=== PATIENT | male | born 1950 | race Caucasian/White ===

== ENCOUNTER 2017-09-20 22:00 | Inpatient (IN) | payer OTHER, MEDICAID ==
[~2017-09-20] VITALS: Ht 177.8 cm; Wt 86.2 kg
[2017-09-21 01:39] LABS: BASOPHILS # (AUTO) 0.09 x10^3/uL (0-0.1); BASOPHILS % (AUTO) 1 % (0-1); EOSINOPHILS # (AUTO) 0.14 x10^3/uL (0-0.4); EOSINOPHILS % (AUTO) 2 % (1-7); LYMPHOCYTES # (AUTO) 1.76 x10^3/uL (1-3.4); LYMPHOCYTES % (AUTO) 25 % (22-44); MD NO; MEAN CORPUSCULAR HEMOGLOBIN 27.8 pg (27.5-34.5); MEAN CORPUSCULAR HGB CONC 33.6 g/dL (33.2-36.2); MEAN CORPUSCULAR VOLUME 82.7 fL (81-97); MEAN PLATELET VOLUME 8.2 fL (7.4-10.4); MONOCYTES # (AUTO) 0.57 x10^3/uL (0.2-0.8); MONOCYTES % (AUTO) 8 % (2-9); NEUTROPHILS # (AUTO) 4.49 x10^3/uL (1.8-6.8); NEUTROPHILS % (AUTO) 64 % (42-75); PLATELET COUNT 138 x10^3/uL (130-400); RED BLOOD COUNT 4.34 x10^6/uL (4.38-5.82)
[2017-09-21 01:48] LABS: ALBUMIN 3.6 g/dL (3.4-5.0); ANION GAP 5 mmol/L (5-15); CALCIUM 8.7 mg/dL (8.5-10.1); CHLORIDE 112 mmol/L (98-107)
[2017-09-21] MEDS ORDERED: SODIUM CHLORIDE 0.9% 1,000ML IVBOLUS ONE (02:30)
[2017-09-21] MEDS ORDERED: SODIUM CHLORIDE FLUSH 10ML SYR IVF ONE (02:30)
[2017-09-21] MEDS ORDERED: SERT50TA PO (03:11)
[2017-09-21] MEDS ORDERED: LORA-446 PO (03:11)
[2017-09-21 03:33] LABS: SALICYLATE LEVEL 7.1 mg/dL (2.8-20.0)
[2017-09-21 03:35] LABS: ACETAMINOPHEN < 2 mcg/mL (10-30)
[2017-09-21] MEDS ORDERED: hydrALAzine 20 MG/ML, 1ML IVPush PRN (04:00)
[2017-09-21] MEDS ORDERED: PROMETHAZINE 25 MG/ML, 1ML IM PRN (04:00)
[2017-09-21] MEDS ORDERED: ONDANSETRON ODT 4 MG PO PRN (04:00)
[2017-09-21] MEDS ORDERED: LORazepam 0.5MG TABLET PO PRN (04:00)
[2017-09-21] MEDS ORDERED: BISACODYL 10 MG SUPP PR PRN (04:00)
[2017-09-21] MEDS ORDERED: ONDANSETRON 2MG/ML, 2ML IVPush PRN (04:00)
[2017-09-21] MEDS ORDERED: ACETAMINOPHEN 325 MG TABLET PO PRN (04:00)
[2017-09-21] MEDS ORDERED: POLYETHYLENE GLYCOL 17 GM PACKET PO PRN (04:00)
[2017-09-21] MEDS: NICOTINE 7 MG/24 HR PATCH.TD24 TD SCH ×2 (04:00→09:07)
[2017-09-21] MEDS ORDERED: DOCUSATE 100 MG CAPSULE PO PRN (04:00)
[2017-09-21 04:01] VITALS: BP 130/76
[2017-09-21 04:11] LABS: FREE T4 (FREE THYROXINE) 0.72 ng/dL (0.76-1.46); THYROID STIMULATING HORMONE 2.08 mIU/L (0.358-3.740)
[2017-09-21] MEDS: HEPARIN 5,000 UNITS/ML, 1ML SQ SCH ×3 (04:28→20:09)
[2017-09-21] MEDS: SODIUM CHLORIDE 0.9% 1,000 ML IV SCH ×3 (04:29→20:09)
[2017-09-21 04:35] LABS: HEMOGLOBIN A1C 5.2 % (4.2-6.3)
[2017-09-21 04:47] LABS: CULTURE INDICATED? YES; MICROSCOPIC INDICATED
[2017-09-21 04:49] LABS: AMPHETAMINE SCREEN, URINE Negative (Negative); BARBITURATE SCREEN, URINE Negative (Negative); BENZODIAZEPINE SCREEN, URINE Positive (Negative); CANNABINOID SCREEN, URINE Negative (Negative); COCAINE SCREEN, URINE Negative (Negative); METHADONE SCREEN, URINE Negative (Negative); OPIATE SCREEN, URINE Negative (Negative)
[2017-09-21 07:09] VITALS: BP 119/71
[2017-09-21 12:04] VITALS: BP 107/63
[2017-09-21] MEDS ORDERED: CEFTRIAXONE PMX 1GM/50ML 50 ML IV SCH (13:00)
[2017-09-21 20:50] VITALS: BP 147/85
[2017-09-22 03:34] VITALS: BP 158/97
[2017-09-22] MEDS: SODIUM CHLORIDE 0.9% 1,000 ML IV SCH (04:20)
[2017-09-22] MEDS: HEPARIN 5,000 UNITS/ML, 1ML SQ SCH ×2 (04:20→12:48)
[2017-09-22 05:18] LABS: BASOPHILS # (AUTO) 0.02 x10^3/uL (0-0.1); BASOPHILS % (AUTO) 0 % (0-1); EOSINOPHILS # (AUTO) 0.07 x10^3/uL (0-0.4); EOSINOPHILS % (AUTO) 1 % (1-7); LYMPHOCYTES # (AUTO) 0.76 x10^3/uL (1-3.4); LYMPHOCYTES % (AUTO) 10 % (22-44); MD NO; MEAN CORPUSCULAR HEMOGLOBIN 27.6 pg (27.5-34.5); MEAN CORPUSCULAR HGB CONC 33.2 g/dL (33.2-36.2); MEAN CORPUSCULAR VOLUME 83.2 fL (81-97); MEAN PLATELET VOLUME 8.4 fL (7.4-10.4); MONOCYTES # (AUTO) 0.35 x10^3/uL (0.2-0.8); MONOCYTES % (AUTO) 4 % (2-9); NEUTROPHILS # (AUTO) 6.66 x10^3/uL (1.8-6.8); NEUTROPHILS % (AUTO) 85 % (42-75); PLATELET COUNT 152 x10^3/uL (130-400); RED BLOOD COUNT 4.73 x10^6/uL (4.38-5.82); RED CELL DISTRIBUTION WIDTH 16.1 % (9.4-14.8)
[2017-09-22 05:32] LABS: CHLORIDE 114 mmol/L (98-107)
[2017-09-22 05:38] LABS: ALANINE AMINOTRANSFERASE 12 U/L (12-78); ALBUMIN 3.4 g/dL (3.4-5.0); ALKALINE PHOSPHATASE 69 U/L (45-117); ANION GAP 7 mmol/L (5-15); BILIRUBIN,TOTAL 0.4 mg/dL (0.2-1.0); CALCIUM 8.5 mg/dL (8.5-10.1); CHOL/HDL RATIO 4.9; CHOLESTEROL, TOTAL 158 mg/dL (140-239); CREATININE 1.76 mg/dL (0.7-1.3); HDL CHOL % 20 % (26-37); HDL CHOLESTEROL (DIRECT) 32 mg/dL (40-60); LDL CHOLESTEROL,CALCULATED 76 mg/dL (54-169); LDL/HDL RATIO 2.4 (0.5-3.0); TRIGLYCERIDES 249 mg/dL (50-200); VLDL CHOLESTEROL 50 mg/dL (0-25)
[2017-09-22 07:55] VITALS: BP 148/70
[2017-09-22] MEDS ORDERED: SERT50TA5 PO (10:18)
[2017-09-22] MEDS ORDERED: LORA2TAB PO (10:18)
[2017-09-22] MEDS ORDERED: DIAZ5TAB4 PO (10:18)
[2017-09-22] MEDS ORDERED: TRAM50TA2 PO (10:18)
[2017-09-22] MEDS ORDERED: SODI650T PO (10:18)
[2017-09-22] MEDS ORDERED: OXYC5TAB3 PO (10:18)
[2017-09-22] MEDS ORDERED: QUET400T4 PO (10:18)
[2017-09-22] MEDS ORDERED: CHLO50TA6 PO (10:18)
[2017-09-22 12:45] VITALS: BP 138/91
[2017-09-22] MEDS ORDERED: SODIUM CHLORIDE 0.9% 1,000 ML IV SCH (13:00)
== END 2017-09-22 15:00 | disposition home or self-care (01) | DRG 91 ==
LOC: ED 09-21 02:18 → EDIP 09-21 02:45 → 4EST 09-21 03:53
PROVIDERS: ADMIT Internal Medicine; ATTEND Internal Medicine
DX: G92 Toxic encephalopathy (principal); N17.0 Acute kidney failure with tubular necrosis; N39.0 Urinary tract infection, site not specified; K56.600 Partial intestinal obstruction, unspecified as to cause; D64.9 Anemia, unspecified; F17.210 Nicotine dependence, cigarettes, uncomplicated; F32.9 Major depressive disorder, single episode, unspecified; F41.9 Anxiety disorder, unspecified; G89.29 Other chronic pain; T42.4X5A Adverse effect of benzodiazepines, initial encounter; Y92.89 Other specified places as the place of occurrence of the external cause
CPT/HCPCS: 36415; 70450; 74018; 76770; 80048; 80053; 80061; 80307; 80329; 81001; 82040; 82140; 83036; 83735; 84439; 84443; 85025; 87086; 87106; 93005; 99285; J0696; J1644; G0480; J7030

== ENCOUNTER 2018-01-27 18:54 | Emergency (ER) | payer OTHER, MEDICAID ==
[~2018-01-27] VITALS: Ht 175.3 cm; Wt 94.0 kg
[~2018-01-27 18:54] MED LIST: CHLO50TA6 PO; DIAZ5TAB4 PO; LORA-446 PO; LORA2TAB PO; OXYC5TAB3 PO; QUET400T4 PO; SERT50TA PO; SERT50TA5 PO; SODI650T PO; TRAM50TA2 PO
[2018-01-27 19:45] LABS: BASOPHILS # (AUTO) 0.01 x10^3/uL (0-0.1); BASOPHILS % (AUTO) 0 % (0-1); EOSINOPHILS # (AUTO) 0.05 x10^3/uL (0-0.4); EOSINOPHILS % (AUTO) 1 % (1-7); LYMPHOCYTES % (AUTO) 7 % (22-44); MD NO; MEAN CORPUSCULAR HEMOGLOBIN 30.9 pg (27.5-34.5); MEAN CORPUSCULAR HGB CONC 34.4 g/dL (33.2-36.2); MEAN CORPUSCULAR VOLUME 89.9 fL (81-97); MEAN PLATELET VOLUME 7.8 fL (7.4-10.4); MONOCYTES # (AUTO) 0.23 x10^3/uL (0.2-0.8); MONOCYTES % (AUTO) 2 % (2-9); NEUTROPHILS % (AUTO) 90 % (42-75); PLATELET COUNT 156 x10^3/uL (130-400); RED BLOOD COUNT 4.94 x10^6/uL (4.38-5.82); RED CELL DISTRIBUTION WIDTH 15.7 % (9.4-14.8)
[2018-01-27 19:57] LABS: ALANINE AMINOTRANSFERASE 21 U/L (12-78); ALBUMIN 3.9 g/dL (3.4-5.0); ANION GAP 7 mmol/L (5-15); CALCIUM 8.7 mg/dL (8.5-10.1); CHLORIDE 111 mmol/L (98-107)
[2018-01-27 19:59] LABS: ALKALINE PHOSPHATASE 64 U/L (45-117); BILIRUBIN,TOTAL 0.4 mg/dL (0.2-1.0); TOTAL PROTEIN 7.9 g/dL (6.4-8.2)
[2018-01-27 21:49] VITALS: BP 139/80
[2018-01-27 22:00] LABS: MICROSCOPIC AUTO
[2018-01-27 22:06] LABS: CULTURE INDICATED? YES
[2018-01-27] MEDS ORDERED: HYDROcodone/APAP 5/325 TABLET PO ONE (22:30)
[2018-01-27] MEDS ORDERED: HYDROcodone/APAP 5/325 TABLET ONE (22:40)
[2018-01-27] MEDS ORDERED: BACITRACIN ZINC OINT 500U/GM, 0.9 GM ONE (23:14)
[2018-01-27] MEDS ORDERED: SILVER SULF. CRM 1% , 25GM ONE (23:40)
[2018-01-28] MEDS ORDERED: SILVER SULF. CRM 1% , 25GM TP ONE
== END 2018-01-28 00:01 | disposition home or self-care (01) ==
LOC: ED 21:44
DX: R55 Syncope and collapse (principal); T24.301A Burn of third degree of unspecified site of right lower limb, except ankle and foot, initial encounter; T31.0 Burns involving less than 10% of body surface; X08.8XXA Exposure to other specified smoke, fire and flames, initial encounter; Y93.89 Activity, other specified; Y92.89 Other specified places as the place of occurrence of the external cause; Y99.8 Other external cause status
CPT/HCPCS: 16020; 36415; 70450; 71045; 80053; 80307; 81001; 82140; 85025; 87086; 93005; 99285

== ENCOUNTER 2019-07-04 10:28 | Emergency (ER) | payer MEDICARE, MEDICAID ==
[~2019-07-04] VITALS: Ht 172.7 cm; Wt 104.0 kg
[~2019-07-04 10:28] MED LIST changes: +SERT50TA28 PO; -SERT50TA5 PO
[2019-07-04] MEDS ORDERED: GABA300C10 PO (10:54)
[2019-07-04] MEDS ORDERED: KETOROLAC 30 MG/1 ML ONE (10:59)
[2019-07-04] MEDS ORDERED: DIAZEPAM 5 MG TABLET ONE (10:59)
[2019-07-04] MEDS ORDERED: DIAZEPAM 5 MG TABLET PO ONE (11:00)
[2019-07-04] MEDS ORDERED: KETOROLAC 30 MG/1 ML IM ONE (11:00)
--- NOTE | 2019-07-04 11:03 | NUR ---
PT AMBULATORY TO IMAGING.
[2019-07-04 11:52] VITALS: BP 113/70
== END 2019-07-04 12:00 | disposition home or self-care (01) ==
LOC: ED 11:26
DX: S29.012A Strain of muscle and tendon of back wall of thorax, initial encounter (principal); E66.9 Obesity, unspecified; Z68.34 Body mass index [BMI] 34.0-34.9, adult; Z87.891 Personal history of nicotine dependence; X58.XXXA Exposure to other specified factors, initial encounter; Y93.89 Activity, other specified; Y92.89 Other specified places as the place of occurrence of the external cause; Y99.8 Other external cause status
CPT/HCPCS: 72072; 96372; 99283; J1885

== ENCOUNTER 2019-11-03 19:54 | Emergency (ER) | payer MEDICARE, MEDICAID ==
[~2019-11-03] VITALS: Ht 175.3 cm; Wt 107.0 kg
[~2019-11-03 19:54] MED LIST changes: +GABA300C10 PO
--- NOTE | 2019-11-03 20:25 | NUR ---
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
[2019-11-03] MEDS ORDERED: CYCLOBENZAPRINE 10 MG TABLET ONE (21:00)
[2019-11-03] MEDS ORDERED: CYCLOBENZAPRINE 10 MG TABLET PO ONE (21:00)
[2019-11-03] MEDS ORDERED: KETOROLAC 30 MG/1 ML IM ONE (21:00)
[2019-11-03] MEDS ORDERED: KETOROLAC 30 MG/1 ML ONE (21:00)
--- NOTE | 2019-11-03 21:10 | NUR ---
PT MEDICATED PER ORDERS. TO XR VIA [facility].
--- NOTE | 2019-11-03 21:31 | NUR ---
PT RETURNS FROM XR.
--- NOTE | 2019-11-03 22:08 | NUR ---
PT STATES HE FEELS MUCH BETTER AFTER MEDS. ABLE TO AMBULATE. D/C INSTRUCTIONS, MEDS & F/U APPT RV'WD WITH PT, HE VERBALIZES UNDERSTANDING. RX GIVEN X2. PT'S FRIEND JONATHAN TO COME PICK HIM UP. ASSISTED PT OUT OF ED VIA WC.
== END 2019-11-03 22:11 | disposition home or self-care (01) ==
LOC: ED 20:28
DX: S39.012A Strain of muscle, fascia and tendon of lower back, initial encounter (principal); F17.200 Nicotine dependence, unspecified, uncomplicated; X58.XXXA Exposure to other specified factors, initial encounter; Y93.89 Activity, other specified; Y92.89 Other specified places as the place of occurrence of the external cause; Y99.8 Other external cause status
CPT/HCPCS: 72100; 96372; 99283; J1885

== ENCOUNTER 2020-06-23 18:46 | Inpatient (IN) | payer MEDICARE, MEDICAID ==
[~2020-06-23] VITALS: Ht 175.3 cm; Wt 92.8 kg
[~2020-06-23 18:46] MED LIST changes: +AZIT250T89 PO; +BENZ1TAB61 PO; +CEFD300C37 PO; +CLON0.1T2 PO; +GABA600T7 PO; -OXYC5TAB3 PO; +OXYC5TAB98 PO; +TOPI100T8 PO
--- NOTE | 2020-06-23 18:57 | NUR ---
PT BIB EMS FOR SOB AND SWOLLEN/ITVHY EYES. PT RECENTLY DX WITH PNEUMONIA AND UTI. PT HAS BEEN TAKING AZITHROMYCIN AND CEFEDINIR. PT ALSO C/O MID STERNAL CP 6/10, NON RADITATING. PT GIVEN 50 MG BENADRYL IV AND 1 ALBUTEROL TREATMENT. 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
--- NOTE | 2020-06-23 19:04 | NUR ---
PT NOTICED CP AND SWOLLEN EYES STARTED 3 DAYS AGO.
[2020-06-23] MEDS ORDERED: SODIUM CHLORIDE FLUSH 10ML SYR IVF ONE (19:30)
[2020-06-23 19:42] LABS: BASOPHILS % (AUTO) 1 % (0-1); EOSINOPHILS % (AUTO) 2 % (1-7); LYMPHOCYTES % (AUTO) 26 % (22-44); MEAN CORPUSCULAR HGB CONC 35.1 g/dL (33.2-36.2); MEAN PLATELET VOLUME 7.7 fL (7.4-10.4); MONOCYTES % (AUTO) 9 % (2-9); NEUTROPHILS % (AUTO) 63 % (42-75); PLATELET COUNT 215 x10^3/uL (130-400); RED CELL DISTRIBUTION WIDTH 14.2 % (9.4-14.8)
--- NOTE | 2020-06-23 19:45 | NUR ---
PT AMBULATED TO RESTROOM WITHOUT DIFFICULTY.
[2020-06-23 19:54] LABS: ALBUMIN 3.9 g/dL (3.4-5.0); ANION GAP 10 mmol/L (5-15); CALCIUM 9.3 mg/dL (8.5-10.1); CHLORIDE 109 mmol/L (98-107); CREATININE 2.44 mg/dL (0.7-1.3)
[2020-06-23 19:56] LABS: TROPONIN I < 0.015 ng/mL (0.000-0.045)
--- NOTE | 2020-06-23 22:20 | NUR ---
PT BACK FROM IMAGING, REQUESTING A SPRITE. AWARE, OKS PT TO HAVE A SODA. PT VERBALIZES APPRECIATION FOR CARES AND CONCERN. PT IN BED WITH HEAD OF BED ELEVATED TO SEMI FOWLERS, SEARCH OPTIMIZATION ANALYST IN PLACE, CALL LIGHT IN HAND AND BED RAILS UP BILATERALLY. NO SIGNS OR SYMPTOMS OF ACUTE DSITRESS NOTED RESPIRATIONS EVEN AND UNLABORED
[2020-06-23] MEDS ORDERED: ENOXAPARIN 80 MG/0.8 ML SQ ONE (23:30)
[2020-06-23] MEDS ORDERED: ENOXAPARIN 80 MG/0.8 ML ONE (23:36)
--- NOTE | 2020-06-23 23:49 | NUR ---
PT MEDICATED ORDERED, AWARE AND AGREEABLE WITH PLAN OF CARE. NO SIGNS OR SYMPTOMS OF ACUTE DISTRESS NOTED RESPIRATIONS EVEN AND UNLABORED.
--- NOTE | 2020-06-23 23:51 | NUR ---
PT PLACED ON NC WITH O2 AT 2L/MIN FOR SPO2 OF 92% ON ROOM AIR.
--- NOTE | 2020-06-24 00:23 | NUR ---
REPORT CALLED TO FLOOR, PT TO HAVE BLE US THEN WILL TRANSPORT TO IN PATIENT.
[2020-06-24] MEDS ORDERED: ACETAMINOPHEN 325 MG TABLET PO PRN (00:30)
[2020-06-24] MEDS ORDERED: ONDANSETRON ODT 4 MG PO PRN (00:30)
[2020-06-24] MEDS ORDERED: BISACODYL 10 MG SUPP PR PRN (00:30)
[2020-06-24] MEDS ORDERED: POLYETHYLENE GLYCOL 17 GM PACKET PO PRN (00:30)
[2020-06-24 01:40] VITALS: BP 115/73
[2020-06-24 05:49] VITALS: BP 115/62
[2020-06-24 06:32] VITALS: BP 135/61
[2020-06-24] MEDS ORDERED: HEPARIN 5,000 UNITS/ML, 1ML IV ONE (09:00)
[2020-06-24 10:20] LABS: ANION GAP 6 mmol/L (5-15); CALCIUM 9.2 mg/dL (8.5-10.1); CHLORIDE 109 mmol/L (98-107); CREATININE 2.21 mg/dL (0.7-1.3)
[2020-06-24] MEDS: HEPARIN 25,000 UNITS/250ML PMX 250 ML IV PRN (11:42)
[2020-06-24] MEDS: SODIUM CHLORIDE FLUSH 10ML SYR IVF SCH ×2 (11:44→22:20)
[2020-06-24] MEDS: SENNA/DOCUSATE TABLET PO SCH (12:16)
[2020-06-24] MEDS: GABAPENTIN 100 MG CAPSULE PO SCH ×2 (12:16→22:19)
[2020-06-24] MEDS: BENZTROPINE 1 MG TABLET PO SCH ×2 (12:16→22:19)
[2020-06-24] MEDS: TOPIRAMATE 100 MG TABLET PO SCH ×2 (12:17→22:19)
[2020-06-24] MEDS: D5%-0.9% NACL+KCL 20MEQ 1,000 ML IV SCH (13:01)
[2020-06-24 15:00] VITALS: BP 134/80
[2020-06-24 18:41] VITALS: BP 129/76
[2020-06-24 20:09] LABS: MICROSCOPIC AUTO
[2020-06-24 20:19] LABS: AMPHETAMINE SCREEN, URINE Negative (Negative); BARBITURATE SCREEN, URINE Negative (Negative); BENZODIAZEPINE SCREEN, URINE Negative (Negative); CANNABINOID SCREEN, URINE Negative (Negative); COCAINE SCREEN, URINE Negative (Negative); METHADONE SCREEN, URINE Negative (Negative); OPIATE SCREEN, URINE Negative (Negative)
[2020-06-24] MEDS: QUETIAPINE 200 MG TABLET PO SCH (22:19)
[2020-06-25] MEDS: D5%-0.9% NACL+KCL 20MEQ 1,000 ML IV SCH (01:15)
[2020-06-25] MEDS: HEPARIN 5,000 UNITS/ML, 1ML IV PRN (01:34)
[2020-06-25 02:00] VITALS: BP 134/82
[2020-06-25 07:22] VITALS: BP 134/80
[2020-06-25] MEDS: BENZTROPINE 1 MG TABLET PO SCH ×2 (08:04→20:01)
[2020-06-25] MEDS: GABAPENTIN 100 MG CAPSULE PO SCH ×2 (08:04→20:01)
[2020-06-25] MEDS: TOPIRAMATE 100 MG TABLET PO SCH ×2 (08:04→20:00)
[2020-06-25] MEDS: SENNA/DOCUSATE TABLET PO SCH (08:05)
[2020-06-25] MEDS: SODIUM CHLORIDE FLUSH 10ML SYR IVF SCH ×2 (08:05→20:15)
[2020-06-25 08:12] LABS: BASOPHILS % (AUTO) 1 % (0-1); EOSINOPHILS % (AUTO) 2 % (1-7); LYMPHOCYTES % (AUTO) 26 % (22-44); MEAN CORPUSCULAR HEMOGLOBIN 30.8 pg (27.5-34.5); MEAN CORPUSCULAR HGB CONC 34.3 g/dL (33.2-36.2); MEAN PLATELET VOLUME 7.6 fL (7.4-10.4); MONOCYTES % (AUTO) 8 % (2-9); NEUTROPHILS % (AUTO) 64 % (42-75); PLATELET COUNT 152 x10^3/uL (130-400); RED BLOOD COUNT 5.02 x10^6/uL (4.38-5.82)
[2020-06-25 08:21] LABS: ALBUMIN 3.2 g/dL (3.4-5.0); ANION GAP 6 mmol/L (5-15); CALCIUM 8.8 mg/dL (8.5-10.1); CHLORIDE 115 mmol/L (98-107)
[2020-06-25 08:25] LABS: ALANINE AMINOTRANSFERASE 16 U/L (12-78); ALKALINE PHOSPHATASE 61 U/L (45-117); BILIRUBIN,TOTAL 0.3 mg/dL (0.2-1.0); CREATININE 1.97 mg/dL (0.7-1.3); TOTAL PROTEIN 6.7 g/dL (6.4-8.2)
[2020-06-25] MEDS: HEPARIN 25,000 UNITS/250ML PMX 250 ML IV PRN (09:21)
[2020-06-25 11:28] LABS: INTERNATIONAL NORMALIZED RATIO 1.11 (0.93-1.1); PROTHROMBIN TIME 11.9 Seconds (9.6-11.5)
[2020-06-25] MEDS ORDERED: WARFARIN 5 MG TABLET PO-COUM ONE (12:30)
[2020-06-25] MEDS: ARTIFICIAL TEARS 15 DROP/ML BOTTLE EACHEYE SCH ×3 (13:00→20:00)
[2020-06-25 15:46] VITALS: BP 128/66
[2020-06-25 18:41] VITALS: BP 134/71
[2020-06-25] MEDS: QUETIAPINE 200 MG TABLET PO SCH (20:00)
[2020-06-25] MEDS: LISINOPRIL 5 MG TABLET PO SCH (20:10)
[2020-06-26 02:15] VITALS: BP 128/67
[2020-06-26 06:01] LABS: INTERNATIONAL NORMALIZED RATIO 1.11 (0.93-1.1); PROTHROMBIN TIME 11.9 Seconds (9.6-11.5)
[2020-06-26 06:03] LABS: ANION GAP 8 mmol/L (5-15); CALCIUM 9.1 mg/dL (8.5-10.1); CHLORIDE 112 mmol/L (98-107)
[2020-06-26] MEDS: HEPARIN 5,000 UNITS/ML, 1ML IV PRN ×2 (06:21→19:16)
[2020-06-26 06:36] VITALS: BP 103/67
[2020-06-26] MEDS: GABAPENTIN 100 MG CAPSULE PO SCH ×2 (09:39→21:22)
[2020-06-26] MEDS: SENNA/DOCUSATE TABLET PO SCH (09:39)
[2020-06-26] MEDS: ARTIFICIAL TEARS 15 DROP/ML BOTTLE EACHEYE SCH ×3 (09:39→21:23)
[2020-06-26] MEDS: BENZTROPINE 1 MG TABLET PO SCH ×3 (09:39→21:22)
[2020-06-26] MEDS: LISINOPRIL 5 MG TABLET PO SCH (09:39)
[2020-06-26] MEDS: SODIUM CHLORIDE FLUSH 10ML SYR IVF SCH ×2 (09:40→21:00)
[2020-06-26] MEDS: TOPIRAMATE 100 MG TABLET PO SCH ×2 (09:40→21:22)
[2020-06-26 13:08] VITALS: BP 120/72
[2020-06-26] MEDS ORDERED: GADOTERATE 10 MMOL/20ML SYR ONE (13:50)
[2020-06-26] MEDS ORDERED: WARFARIN 5 MG TABLET PO-COUM ONE (18:00)
[2020-06-26 18:41] VITALS: BP 104/61
[2020-06-26] MEDS: QUETIAPINE 200 MG TABLET PO SCH (21:22)
[2020-06-27] VITALS (10 sets, daily range): BP systolic 67–110; BP diastolic 42–74
[2020-06-27 06:15] LABS: INTERNATIONAL NORMALIZED RATIO 1.65 (0.93-1.1); PROTHROMBIN TIME 17.5 Seconds (9.6-11.5)
[2020-06-27 06:17] LABS: ANION GAP 7 mmol/L (5-15); CALCIUM 9.7 mg/dL (8.5-10.1); CHLORIDE 105 mmol/L (98-107); CREATININE 2.93 mg/dL (0.7-1.3)
[2020-06-27] MEDS ORDERED: SODIUM CHLORIDE 0.9%, 500ML IVBOLUS ONE ×3 (07:30→09:30)
[2020-06-27] MEDS: SENNA/DOCUSATE TABLET PO SCH (07:40)
[2020-06-27] MEDS ORDERED: POTASSIUM CHLORIDE 20 MEQ PACKET PO ONE (08:00)
[2020-06-27 08:44] LABS: BASOPHILS % (AUTO) 0 % (0-1); EOSINOPHILS % (AUTO) 1 % (1-7); LYMPHOCYTES % (AUTO) 14 % (22-44); MEAN CORPUSCULAR HEMOGLOBIN 30.9 pg (27.5-34.5); MEAN CORPUSCULAR HGB CONC 34.3 g/dL (33.2-36.2); MEAN PLATELET VOLUME 8.1 fL (7.4-10.4); MONOCYTES % (AUTO) 5 % (2-9); NEUTROPHILS % (AUTO) 79 % (42-75); PLATELET COUNT 178 x10^3/uL (130-400); RED BLOOD COUNT 5.15 x10^6/uL (4.38-5.82); RED CELL DISTRIBUTION WIDTH 14.3 % (9.4-14.8)
[2020-06-27 08:58] LABS: TROPONIN I < 0.015 ng/mL (0.000-0.045)
[2020-06-27] MEDS ORDERED: HEPARIN 5,000 UNITS/ML, 1ML IV ONE (09:00)
[2020-06-27] MEDS: GABAPENTIN 100 MG CAPSULE PO SCH ×2 (09:00→22:19)
[2020-06-27] MEDS ORDERED: AMLODIPINE 5 MG TABLET PO SCH (09:00)
[2020-06-27] MEDS: SODIUM CHLORIDE FLUSH 10ML SYR IVF SCH ×2 (09:00→21:07)
[2020-06-27] MEDS: SODIUM CHLORIDE 0.9% 1,000 ML IV SCH ×2 (09:30→21:05)
[2020-06-27] MEDS: ARTIFICIAL TEARS 15 DROP/ML BOTTLE EACHEYE SCH ×3 (11:02→21:06)
[2020-06-27] MEDS: BENZTROPINE 1 MG TABLET PO SCH ×3 (11:17→21:05)
[2020-06-27] MEDS: TOPIRAMATE 100 MG TABLET PO SCH ×2 (11:17→21:04)
[2020-06-27] MEDS ORDERED: WARFARIN 1 MG TABLET PO-COUM ONE (17:46)
[2020-06-27] MEDS ORDERED: WARFARIN 2 MG TABLET PO-COUM ONE (17:46)
[2020-06-27] MEDS ORDERED: WARFARIN 3 MG TABLET PO-COUM ONE (18:00)
[2020-06-27] MEDS: HEPARIN 25,000 UNITS/250ML PMX 250 ML IV PRN (20:26)
[2020-06-27] MEDS: QUETIAPINE 200 MG TABLET PO SCH (22:19)
[2020-06-28 02:00] VITALS: BP 95/68
[2020-06-28 05:12] LABS: BASOPHILS % (AUTO) 0 % (0-1); EOSINOPHILS % (AUTO) 1 % (1-7); LYMPHOCYTES % (AUTO) 23 % (22-44); MEAN CORPUSCULAR HEMOGLOBIN 30.8 pg (27.5-34.5); MEAN CORPUSCULAR HGB CONC 33.8 g/dL (33.2-36.2); MONOCYTES % (AUTO) 5 % (2-9); NEUTROPHILS % (AUTO) 70 % (42-75); PLATELET COUNT 134 x10^3/uL (130-400); RED BLOOD COUNT 4.48 x10^6/uL (4.38-5.82); RED CELL DISTRIBUTION WIDTH 14.5 % (9.4-14.8)
[2020-06-28 05:19] LABS: INTERNATIONAL NORMALIZED RATIO 2.86 (0.93-1.1)
[2020-06-28] MEDS: SODIUM CHLORIDE 0.9% 1,000 ML IV SCH ×3 (05:19→21:21)
[2020-06-28 05:26] LABS: ANION GAP 7 mmol/L (5-15); CALCIUM 8.2 mg/dL (8.5-10.1); CHLORIDE 116 mmol/L (98-107)
[2020-06-28 05:27] LABS: CREATININE 2.57 mg/dL (0.7-1.3)
[2020-06-28 06:51] VITALS: BP 91/57
[2020-06-28] MEDS: SENNA/DOCUSATE TABLET PO SCH (09:29)
[2020-06-28] MEDS: TOPIRAMATE 100 MG TABLET PO SCH ×2 (09:29→21:19)
[2020-06-28] MEDS: BENZTROPINE 1 MG TABLET PO SCH ×3 (09:29→21:18)
[2020-06-28] MEDS: GABAPENTIN 100 MG CAPSULE PO SCH ×2 (09:29→21:19)
[2020-06-28] MEDS: SODIUM CHLORIDE FLUSH 10ML SYR IVF SCH ×2 (09:30→21:49)
[2020-06-28] MEDS: ARTIFICIAL TEARS 15 DROP/ML BOTTLE EACHEYE SCH ×3 (09:30→21:21)
[2020-06-28 12:25] VITALS: BP 94/62
[2020-06-28] MEDS ORDERED: WARFARIN 1 MG TABLET PO-COUM ONE (18:00)
[2020-06-28 19:40] VITALS: BP 99/66
[2020-06-28] MEDS ORDERED: ALBUMIN HUMAN 25% 100 ML IV ONE (20:00)
[2020-06-28 20:23] VITALS: BP 120/63
[2020-06-28 20:24] VITALS: BP_SYST 118; BP_SYST 126; BP_DIAS 66; BP_DIAS 69
[2020-06-28] MEDS: QUETIAPINE 200 MG TABLET PO SCH (21:18)
[2020-06-29] VITALS (7 sets, daily range): BP systolic 101–145; BP diastolic 63–74
[2020-06-29 06:12] LABS: BASOPHILS % (AUTO) 1 % (0-1); EOSINOPHILS % (AUTO) 3 % (1-7); LYMPHOCYTES % (AUTO) 27 % (22-44); MEAN CORPUSCULAR HEMOGLOBIN 30.8 pg (27.5-34.5); MEAN CORPUSCULAR HGB CONC 33.4 g/dL (33.2-36.2); MEAN PLATELET VOLUME 7.8 fL (7.4-10.4); MONOCYTES % (AUTO) 6 % (2-9); NEUTROPHILS % (AUTO) 63 % (42-75); PLATELET COUNT 122 x10^3/uL (130-400); RED BLOOD COUNT 4.47 x10^6/uL (4.38-5.82); RED CELL DISTRIBUTION WIDTH 14.3 % (9.4-14.8)
[2020-06-29 06:21] LABS: INTERNATIONAL NORMALIZED RATIO 3.05 (0.93-1.1); PROTHROMBIN TIME 31.9 Seconds (9.6-11.5)
[2020-06-29 06:22] LABS: CHLORIDE 119 mmol/L (98-107)
[2020-06-29 06:29] LABS: ANION GAP 7 mmol/L (5-15); CALCIUM 8.4 mg/dL (8.5-10.1); CREATININE 1.95 mg/dL (0.7-1.3)
[2020-06-29] MEDS: SODIUM CHLORIDE 0.9% 1,000 ML IV SCH (07:15)
[2020-06-29] MEDS: ARTIFICIAL TEARS 15 DROP/ML BOTTLE EACHEYE SCH ×3 (08:45→21:00)
[2020-06-29] MEDS: GABAPENTIN 100 MG CAPSULE PO SCH ×2 (08:46→20:33)
[2020-06-29] MEDS: SODIUM CHLORIDE FLUSH 10ML SYR IVF SCH ×2 (08:46→21:00)
[2020-06-29] MEDS: SENNA/DOCUSATE TABLET PO SCH (08:46)
[2020-06-29] MEDS: BENZTROPINE 1 MG TABLET PO SCH ×3 (08:46→20:33)
[2020-06-29] MEDS: TOPIRAMATE 100 MG TABLET PO SCH ×2 (08:46→20:33)
[2020-06-29] MEDS: QUETIAPINE 200 MG TABLET PO SCH (20:33)
[2020-06-30 00:54] VITALS: BP 132/68
[2020-06-30 07:32] VITALS: BP 133/65
[2020-06-30 07:34] VITALS: BP 134/75
[2020-06-30 07:35] VITALS: BP 95/60
[2020-06-30 07:56] LABS: BASOPHILS % (AUTO) 1 % (0-1); EOSINOPHILS % (AUTO) 3 % (1-7); LYMPHOCYTES % (AUTO) 24 % (22-44); MEAN CORPUSCULAR HEMOGLOBIN 30.4 pg (27.5-34.5); MEAN CORPUSCULAR HGB CONC 33.6 g/dL (33.2-36.2); MEAN PLATELET VOLUME 8.2 fL (7.4-10.4); MONOCYTES % (AUTO) 6 % (2-9); NEUTROPHILS % (AUTO) 67 % (42-75); PLATELET COUNT 139 x10^3/uL (130-400); RED BLOOD COUNT 5.25 x10^6/uL (4.38-5.82)
[2020-06-30 08:05] LABS: INTERNATIONAL NORMALIZED RATIO 1.81 (0.93-1.1); PROTHROMBIN TIME 19.1 Seconds (9.6-11.5)
[2020-06-30 08:08] LABS: ANION GAP 8 mmol/L (5-15); CALCIUM 9.3 mg/dL (8.5-10.1); CHLORIDE 115 mmol/L (98-107); CREATININE 1.81 mg/dL (0.7-1.3)
[2020-06-30 08:30] VITALS: BP 143/78
[2020-06-30] MEDS: ARTIFICIAL TEARS 15 DROP/ML BOTTLE EACHEYE SCH (08:38)
[2020-06-30] MEDS: SENNA/DOCUSATE TABLET PO SCH (08:38)
[2020-06-30] MEDS: BENZTROPINE 1 MG TABLET PO SCH (08:38)
[2020-06-30] MEDS: GABAPENTIN 100 MG CAPSULE PO SCH (08:38)
[2020-06-30] MEDS: TOPIRAMATE 100 MG TABLET PO SCH (08:38)
[2020-06-30] MEDS: SODIUM CHLORIDE FLUSH 10ML SYR IVF SCH (08:40)
[2020-06-30] MEDS ORDERED: GABA600T7 PO (10:00)
[2020-06-30] MEDS ORDERED: TOPI100T8 PO (10:00)
[2020-06-30] MEDS ORDERED: QUET400T4 PO (10:00)
[2020-06-30] MEDS ORDERED: BENZ1TAB61 PO ×2 (10:00→13:29)
[2020-06-30] MEDS ORDERED: APIXABAN 5 MG TABLET PO SCH ×2 (10:30)
[2020-06-30] MEDS ORDERED: APIX5TAB PO (13:29)
[2020-06-30 14:07] VITALS: BP 150/72
[2020-06-30] MEDS ORDERED: WARFARIN 3 MG TABLET PO-COUM ONE (18:00)
[2020-07-07] MEDS ORDERED: APIXABAN 2.5 MG TABLET PO SCH (09:00)
[2020-07-07] MEDS ORDERED: APIXABAN 5 MG TABLET PO SCH (09:00)
== END 2020-06-30 16:10 | disposition home health service (06) | DRG 175 ==
LOC: ED 21:31 → EDIP 06-24 → 4WST 06-24 01:15
PROVIDERS: ADMIT Internal Medicine; ATTEND Internal Medicine
DX: I26.99 Other pulmonary embolism without acute cor pulmonale (principal); N17.0 Acute kidney failure with tubular necrosis; N18.4 Chronic kidney disease, stage 4 (severe); G93.40 Encephalopathy, unspecified; I13.0 Hypertensive heart and chronic kidney disease with heart failure and stage 1 through stage 4 chronic kidney disease, or unspecified chronic kidney disease; I50.42 Chronic combined systolic (congestive) and diastolic (congestive) heart failure; N13.30 Unspecified hydronephrosis; E87.6 Hypokalemia; F31.9 Bipolar disorder, unspecified; F41.9 Anxiety disorder, unspecified; G24.01 Drug induced subacute dyskinesia; T43.595A Adverse effect of other antipsychotics and neuroleptics, initial encounter; H10.10 Acute atopic conjunctivitis, unspecified eye; F99 Mental disorder, not otherwise specified; F17.210 Nicotine dependence, cigarettes, uncomplicated; I95.2 Hypotension due to drugs; T46.2X5A Adverse effect of other antidysrhythmic drugs, initial encounter; K57.90 Diverticulosis of intestine, part unspecified, without perforation or abscess without bleeding; Z79.01 Long term (current) use of anticoagulants; Z80.9 Family history of malignant neoplasm, unspecified; Z83.3 Family history of diabetes mellitus; Y92.89 Other specified places as the place of occurrence of the external cause; Z91.19 Patient's noncompliance with other medical treatment and regimen; Z91.81 History of falling; Z87.440 Personal history of urinary (tract) infections; Z87.01 Personal history of pneumonia (recurrent)
CPT/HCPCS: 36415; 36600; 70450; 70551; 71045; 78598; 80048; 80053; 80307; 80320; 81001; 82040; 82140; 82803; 83605; 83735; 83880; 84145; 84443; 84484; 85025; 85379; 85520; 85610; 87086; 93005; 93306; 93970; 99285; G0378; J1644; J1650; P9047; Q0162; 92523-GN; A9540; A9558; A9575; G0480; J3480; J7030; J7040

== ENCOUNTER 2020-09-23 01:01 | Emergency (ER) | payer MEDICARE, MEDICAID ==
[~2020-09-23] VITALS: Ht 175.3 cm; Wt 100.0 kg
[~2020-09-23 01:01] MED LIST changes: +APIX5TAB PO
--- NOTE | 2020-09-23 01:06 | NUR ---
PT BIB [facility] FOR LOW BACK PAIN, PT REPORTS HE HAS A HISTORY OF. REPORT GIVEN TO MARGIE FLORES.
[2020-09-23] MEDS ORDERED: LIDODERM 5% PATCH TD ONE ×2 (01:21→01:30)
[2020-09-23] MEDS ORDERED: KETOROLAC 30 MG/1 ML ONE (01:21)
[2020-09-23] MEDS ORDERED: ACETAMINOPHEN 500 MG TABLET ONE (01:22)
[2020-09-23] MEDS ORDERED: KETOROLAC 30 MG/1 ML IM ONE (01:30)
[2020-09-23] MEDS ORDERED: ACETAMINOPHEN 500 MG TABLET PO ONE (01:30)
--- NOTE | 2020-09-23 02:36 | NUR ---
pt ambulated with personal cane to restroom
[2020-09-23 03:00] VITALS: BP 137/70
[2020-09-23] MEDS ORDERED: DIAZEPAM 5 MG TABLET PO ONE (03:00)
[2020-09-23] MEDS ORDERED: DIAZEPAM 5 MG TABLET ONE (03:01)
== END 2020-09-23 03:43 | disposition home or self-care (01) ==
LOC: ED 02:30
DX: S39.012A Strain of muscle, fascia and tendon of lower back, initial encounter (principal); M47.26 Other spondylosis with radiculopathy, lumbar region; F17.210 Nicotine dependence, cigarettes, uncomplicated; X58.XXXA Exposure to other specified factors, initial encounter; Y93.89 Activity, other specified; Y92.89 Other specified places as the place of occurrence of the external cause; Y99.8 Other external cause status
CPT/HCPCS: 72110; 96372; 99284; 99406; J1885

== ENCOUNTER 2020-11-09 05:08 | Emergency (ER) | payer MEDICARE, MEDICAID ==
[~2020-11-09] VITALS: Ht 175.3 cm; Wt 90.0 kg
[2020-11-09 05:10] VITALS: BP 148/86
[2020-11-09] MEDS ORDERED: DIPHENHYDRAMINE 50 MG CAPSULE ONE (05:39)
--- NOTE | 2020-11-09 05:47 | NUR ---
Patient given discharge instructions and they have confirmed that they understand the instructions. Patient ambulatory with steady gait. NAD, all questions answered appropriately, denies additional needs at this time. No personal belongings left in room after discharge.
[2020-11-09] MEDS ORDERED: DIPHENHYDRAMINE 50 MG CAPSULE PO PRN (06:00)
== END 2020-11-09 05:49 | disposition home or self-care (01) ==
LOC: ED 05:37
DX: L24.9 Irritant contact dermatitis, unspecified cause (principal); T14.8XXA Other injury of unspecified body region, initial encounter; F17.200 Nicotine dependence, unspecified, uncomplicated; W57.XXXA Bitten or stung by nonvenomous insect and other nonvenomous arthropods, initial encounter; Y93.89 Activity, other specified; Y92.89 Other specified places as the place of occurrence of the external cause; Y99.8 Other external cause status
CPT/HCPCS: 99282

== ENCOUNTER 2020-11-13 22:20 | Emergency (ER) | payer MEDICARE, MEDICAID ==
[~2020-11-13] VITALS: Ht 175.3 cm; Wt 87.4 kg
[2020-11-13 22:25] VITALS: BP 122/76
[2020-11-13] MEDS ORDERED: FAMOTIDINE 20 MG TABLET PO ONE (22:30)
[2020-11-13] MEDS ORDERED: DIPHENHYDRAMINE 25 MG CAPSULE PO ONE (22:30)
[2020-11-13] MEDS ORDERED: DIPHENHYDRAMINE 25 MG CAPSULE ONE (22:39)
[2020-11-13] MEDS ORDERED: FAMOTIDINE 20 MG TABLET ONE (22:39)
--- NOTE | 2020-11-13 22:48 | NUR ---
Belongings locked up and secured at this time. Room secured. Sitter outside of room.
[2020-11-13 22:52] LABS: BASOPHILS % (AUTO) 1 % (0-1); EOSINOPHILS % (AUTO) 4 % (1-7); LYMPHOCYTES % (AUTO) 20 % (22-44); MEAN CORPUSCULAR HEMOGLOBIN 32.8 pg (27.5-34.5); MEAN PLATELET VOLUME 7.3 fL (7.4-10.4); MONOCYTES % (AUTO) 9 % (2-9); NEUTROPHILS % (AUTO) 66 % (42-75); PLATELET COUNT 188 x10^3/uL (130-400); RED BLOOD COUNT 4.46 x10^6/uL (4.38-5.82)
[2020-11-13] MEDS ORDERED: PERMETHRIN CRM 5%, 60GM TP ONE (23:00)
[2020-11-13 23:04] LABS: ALBUMIN 2.9 g/dL (3.4-5.0); ANION GAP 6 mmol/L (5-15); CALCIUM 8.7 mg/dL (8.5-10.1); CHLORIDE 102 mmol/L (98-107)
[2020-11-13 23:06] LABS: ALANINE AMINOTRANSFERASE 17 U/L (12-78); ALKALINE PHOSPHATASE 98 U/L (45-117); BILIRUBIN,TOTAL 0.4 mg/dL (0.2-1.0); CREATININE 1.67 mg/dL (0.7-1.3); TOTAL PROTEIN 7.9 g/dL (6.4-8.2)
[2020-11-13 23:07] LABS: SALICYLATE LEVEL < 1.7 mg/dL (2.8-20.0)
[2020-11-13] MEDS ORDERED: PERMETHRIN CRM 5%, 60GM ONE (23:24)
--- NOTE | 2020-11-13 23:44 | NUR ---
Permethrin cream placed diffusely on pts skin. Education provided on med and prescriptions. Discharge paperwork gone over. Belongings returned to pt. Strict return precuations and verbal no SI or self harm behavior contract gone over with pt.
== END 2020-11-13 23:46 | disposition home or self-care (01) ==
LOC: ED 22:45
DX: B86 Scabies (principal); F17.210 Nicotine dependence, cigarettes, uncomplicated
CPT/HCPCS: 36415; 80053; 80299; 80320; 80329; 85025; 99284; 99406; Q0163; G0480

== ENCOUNTER 2020-12-18 17:22 | Emergency (ER) | payer MEDICARE, MEDICAID ==
[~2020-12-18] VITALS: Ht 175.3 cm; Wt 91.0 kg
--- NOTE | 2020-12-18 17:44 | NUR ---
PT BIB [facility]. STATES WANTS ETOH DETOX AND HAS RUQ ABD PAIN. PT STATES HE HAS DRANK 1/5 OF VODKA X9 DAYS, STATES SOBER X14 YEARS PRIOR. PT PLACED ON MONIOTRS, IV STARTED PER ORDERS. WILL FOLLOW ORDERS.
[2020-12-18] MEDS ORDERED: SODIUM CHLORIDE FLUSH 10ML SYR IVF ONE (18:00)
[2020-12-18] MEDS ORDERED: SODIUM CHLORIDE 0.9% 1,000ML IVBOLUS ONE (18:00)
[2020-12-18 18:06] LABS: BASOPHILS % (AUTO) 1 % (0-1); EOSINOPHILS % (AUTO) 0 % (1-7); LYMPHOCYTES % (AUTO) 16 % (22-44); MEAN CORPUSCULAR HEMOGLOBIN 33.3 pg (27.5-34.5); MEAN CORPUSCULAR HGB CONC 34.9 g/dL (33.2-36.2); MEAN PLATELET VOLUME 8.1 fL (7.4-10.4); MONOCYTES % (AUTO) 4 % (2-9); NEUTROPHILS % (AUTO) 80 % (42-75); PLATELET COUNT 134 x10^3/uL (130-400); RED BLOOD COUNT 4.43 x10^6/uL (4.38-5.82); RED CELL DISTRIBUTION WIDTH 15.1 % (9.4-14.8)
[2020-12-18 18:14] LABS: ALBUMIN 2.7 g/dL (3.4-5.0); ANION GAP 13 mmol/L (5-15); CALCIUM 8.2 mg/dL (8.5-10.1); CHLORIDE 96 mmol/L (98-107)
[2020-12-18 18:17] LABS: ALANINE AMINOTRANSFERASE 37 U/L (12-78); ALKALINE PHOSPHATASE 114 U/L (45-117); BILIRUBIN,TOTAL 0.9 mg/dL (0.2-1.0); CREATININE 1.79 mg/dL (0.7-1.3); TOTAL PROTEIN 7.3 g/dL (6.4-8.2)
--- NOTE | 2020-12-18 18:41 | NUR ---
PT TO IMAGING.
[2020-12-18] MEDS ORDERED: MAGNESIUM SULFATE 1 GM, THIAMINE 100 MG, FOLIC ACID 1 MG, MVI ADULT 10 ML in SODIUM CHL... IV ONE (19:00)
--- NOTE | 2020-12-18 19:00 | NUR ---
REPORT TO SERINA HANSON.
--- NOTE | 2020-12-18 19:08 | NUR ---
PT MOVED TO ROOM FOUR. PHARMACY NOTIFIED TO SEND BANANA BAG
[2020-12-18] MEDS ORDERED: MAALOX/HYOSCYAMINE/LIDOCAINE 45 ML BTL ONE (19:22)
[2020-12-18] MEDS ORDERED: MAALOX/HYOSCYAMINE/LIDOCAINE 45 ML BTL PO ONE (19:30)
[2020-12-18] MEDS ORDERED: LORazepam 2 MG/ML, 1ML ONE (20:45)
[2020-12-18] MEDS ORDERED: LORazepam 2 MG/ML, 1ML IVPush PRN (21:00)
[2020-12-18 21:31] VITALS: BP 124/68
--- NOTE | 2020-12-18 21:32 | NUR ---
MULTIPLE ATTEMPTS TO CALL [facility] FOR PLACEMENT WITH NO LUCK. PT REPORTS BEING OKAY WITH STAYING IN [facility] AND FOLLOW UP WITH [facility] WHEN THEY HAVE BED AVAILABLE.
== END 2020-12-18 21:34 | disposition home or self-care (01) ==
LOC: ED 19:22
DX: K29.20 Alcoholic gastritis without bleeding (principal); F10.129 Alcohol abuse with intoxication, unspecified; Y90.9 Presence of alcohol in blood, level not specified; F17.200 Nicotine dependence, unspecified, uncomplicated
CPT/HCPCS: 36415; 74176; 80053; 80320; 83690; 85025; 96361; 96365; 96375; 99284; J2060; J3411; J3475; J7030; G0480